=== PATIENT | male | born 1950 | race Caucasian/White ===

== ENCOUNTER 2023-08-31 11:51 | Inpatient (IN) | payer MEDICARE, SELFPAY ==
[2023-08-31] VITALS (31 sets, daily range): BP systolic 104–141; BP diastolic 65–95; PULSE 94; BMI 31.7; BMI 27.9
[2023-08-31 07:54] LABS: % Basophils 0.3 % (0-2); % Eosinophils 0.4 % (0-6); % Immature Granulocytes 0.2 % (0-0.5); % Lymphocytes 11.1 % (20.5-51.1); % Monocytes 9.6 % (1.7-9.3); % Neutrophils 78.4 % (42.2-75.2); Absolute Lymphocytes 1.1 10^3/uL (1.2-3.4); Absolute Monocytes 0.9 10^3/uL (0.1-0.6); Absolute Neutrophils 7.4 10^3/uL (1.4-6.5); Hemoglobin 15.3 g/dL (13.0-18.0); Mean Corp Hgb Conc. 34.8 g/dL (33.0-37.0); Mean Corpuscular Hgb 31.4 pg (27.0-31.0); Mean Corpuscular Volume 90.2 fL (80.0-94.0); Mean Platelet Volume 10.4 fL (7.4-10.4); Nucleated Red Blood Cells % 0 % (-); Platelet Count 167 10^3/uL (130-400); Red Blood Cell Count 4.88 10^6/uL (4.70-6.10); Red Cell Dist. Width 12.6 % (11.5-14.5); White Blood Cell Count 9.5 10^3/uL (4.8-10.8)
[2023-08-31 08:13] LABS: ALT (SGPT) 32 U/L (0-50); AST (SGOT) 69 U/L (17-59); Albumin 4.4 g/dl (3.5-5.0); Alkaline Phosphatase 70 U/L (38-126); Blood Urea Nitrogen 23 mg/dl (9-20); Calcium 9.4 mg/dl (8.4-10.2); Carbon Dioxide 23 mmol/L (22-30); Chloride 107 mmol/L (98-107); Estimated Creatinine Clearance 81 ml/min; Glucose 111 mg/dl (70-99); Lipase 48 U/L (23-300); Magnesium 1.9 mg/dl (1.6-2.3); Potassium 3.9 mmol/L (3.5-5.1); Sodium 135 mmol/L (135-145); Total Bilirubin 1.4 mg/dl (0.2-1.3); eGFR > 60.00
[2023-08-31 08:14] LABS: COVID-19 Antigen Negative (Negative)
--- NOTE | 2023-08-31 08:30 | EDRN ---
troponin came back elevated, provider notified
--- NOTE | 2023-08-31 08:32 | EDRN ---
Dr. Steward currently at the pts bedside, second EKG being performed
[2023-08-31] MEDS: NITROSTAT (SUBLINGUAL) 0.400000000000000022 MG SL ×2 (08:44→09:02)
[2023-08-31] MEDS: NSS 1000 IV (08:44)
--- NOTE | 2023-08-31 08:45 | EDRN ---
Nitro SL administered for central chest pain 10/08 per provider along with 1,000cc IVF Bolus
--- NOTE | 2023-08-31 08:46 | ED.GENMED ---
History of Present Illness
<Farhana Hobson PA-C - Last Filed: 08/31/23 14:21>
General
Chief Complaint: Chest Problem
Source: patient
Exam Limitations: none
Time Seen by Provider: 08/31/23 07:18
Nursing documentation reviewed up to this point in time: agreed with
Travel History
Have you had any contact with someone who has COVID-19?: No
Do you have any symptoms of coronavirus? Fever > 100 degrees, chills, cough, shortness of breath, sore throat, loss of taste or smell, muscle aches, or headache?: No
History of Present Illness
History of Present Illness:
pt is a 72 y/o m with h/o htn, hld
here with chest pain that woke him from sleep at 2 am
says it started in L ear, jaw adn then chest suddenly, 02/07
he was able to get up and take 2 full doses of aspirin
then walked around a little
the ear and jaw are much better but still has pain i nthe chest with breathing 10/08
he has not had any nauesa, vomiting, diaphoresis, syncope, lightheadedness
no recent long travel
no h/o dvt/pe
no h/o cad
Past History
<Farhana Hobson PA-C - Last Filed: 08/31/23 14:21>
Past History
ED Past Medical History: HTN and Hypercholesterolemia
Social History
Tobacco: Non-smoker
Alcohol: None
Drug: None
Personal: Single
Review of Systems
<ABRAHAM Mix Last Filed: 08/31/23 14:21>
Review of Systems
Allergies reviewed?: Yes
All Other Systems: Not applicable
Phy Exam
<Farhana Hobson PA-C - Last Filed: 08/31/23 14:21>
Physical Exam
Physical Exam:
GENERAL: Alert , in no apparent distress, pt appears very comfortabe
EYE: pupils equal and reactive
NECK: Supple
ENT: o/p clr, mmm., eas normal b/l
CARDIAC: Regular rate and rhythm .no edema
LUNGS: Clear breath sounds bilaterally, no acute respiratory distress, no wheezes/rales/rhonchi
ABDOMEN: Soft, without focal tenderness, no r/g, no cvat, normal bowel sounds
NEUROLOGICAL: Alert and oriented, no focal neuro deficits
SKIN: Warm and dry, skin intact.
MUSCULOSKELETAL: No edema, well perfused. neg marci's sign
PSYCH: Normal and appropriate interaction.
Scores
<Farhana Hobson PA-C - Last Filed: 08/31/23 14:21>
Heart Score for Chest Pain Patients
Heart Score for Chest Pain Patients: 4
Heart Score Risk: 20.3% MACE over next 6 weeks
<Chapin Steward MD - Last Filed: 08/31/23 11:52>
Heart Score for Chest Pain Patients
STEMI patient?: No
History: Slightly or Non-Suspicious
ECG: Normal
Age: >/= 65 years
Risk Factors: 1 or 2 Risk Factors
Troponin: >1 - <3 x Normal Limit
Heart Score for Chest Pain Patients: 4
Heart Score Risk: 20.3% MACE over next 6 weeks
Course
<Farhana Hobson PA-C - Last Filed: 08/31/23 14:21>
Orders/Labs/Results
Orders:
Orders
08/31/23 06:56
EKG [Electrocardiogram (*1)] Urgent
Reason for Study: Chest Pain
EKG- Treatment ONCE
08/31/23 07:47
COVID-19 Antigen Urgent
Source: Nasal Swab
Complete Blood Count/With Diff Urgent
Comprehensive Metabolic Panel Urgent
Lipase Urgent
Magnesium Urgent
Troponin I Urgent
Influenza A+B Rapid Molecular Urgent
QIAN Source: Nasal Swab
Specimen Description:
08/31/23 08:32
EKG [Electrocardiogram (*1)] Urgent
Reason for Study: Chest Pain
EKG- Treatment ONCE
08/31/23 08:43
0.9% Sodium Chloride 1000 ml [Nss] 1,000 ml IV BOLUS
Nitroglycerin Sublingual [Nitrostat (Sublingual)] 0.4 mg SL NOW STA
08/31/23 08:44
Heparin 4,000 units IV NOW STA
Nursing to Place Non Medication Order As Directed
Physician Order: PTT 6 hours after initial start of Heparin infusion
Above order entered?: Yes
08/31/23 08:45
Heparin 04889 Units/250 ml 25,000 units in 250 ml IV PER PROTOCOL
Weight to be used for heparin protocol in kilograms (kg):: 112
Protocol:: Cardiac Tx/Acute Coronary
PTT Goal Range to be used:: PTT 73 to 111 seconds
Order type:: Initial
INITIAL Infusion Dose (UNITS/KG/hr) & then follow protocol:: 12 units/kg/hr
Infusion Dose in UNITS/hr & then follow protocol (UNITS/hr):: 1,000
INFUSION RATE in mL/hr & then follow protocol (mL/hr):: 10
PTT less than or equal to 64 seconds:: Increase rate by 200 units/hr (+ 2 mL/hr)
PTT 64.1 to 72.9 seconds:: Increase rate by 100 units/hr (+ 1 mL/hr)
PTT 73 to 111 seconds:: Target Range. No change in rate.
PTT 111.1 to 130.9 seconds:: Decrease rate by 100 units/hr (- 1 mL/hr)
PTT 131 to 199.9 seconds:: HOLD for 1 hr. Then decrease rate by 200 units/hr (- 2 mL/hr)
PTT greater than or equal to 200 seconds:: HOLD for 2 hrs & Notify Provider. Then decrease by 200 units/hr (-
2 mL/hr)
Lab follow-up:: Each change, PTT q6h until 2 consecutive are therapeutic. Then PTT
daily.
08/31/23 08:50
PTT Urgent
Comment: Obtain baseline before beginning heparin infusion if not already collected
08/31/23 09:00
Nitroglycerin Sublingual [Nitrostat (Sublingual)] 0.4 mg SL NOW STA
08/31/23 09:01
Nitroglycerin 100 mg/250 ml [Nitroglycerin Premix] 100 mg in 250 ml IV NOW
Initial dose in mcg/min, then titrate:: 5
Titrate to keep:: SBP < 160 mmHg
Titrate by mcg/min:: 5 mcg/min, may increase by 10 mcg/min if dose > 20 mcg/min
Frequency of titrations (minutes):: every 3-5 minutes
Maximum dose in mcg/min:: 200
Begin to taper infusion when:: Remained at goal for 2hrs
Taper by mcg/min:: 5 mcg/min
Frequency of taper (minutes) if patient maintains goal:: 30
Taper to off?: Yes
If infusion off & no longer maintaining goal:: Contact Provider
08/31/23 09:08
Aspirin Chewable [Low Strength Aspirin] 324 mg PO NOW STA
08/31/23 09:33
Metoprolol [Lopressor] 2.5 mg IV NOW STA
08/31/23 09:56
Acetaminophen [Tylenol] 650 mg PO Q4HPRN PRN
08/31/23 10:09
Troponin I Routine
08/31/23 11:00
Flush (0.9% Sodium Chloride) [Flush (Nss)] See Dose Instructions IV PER PROTOCOL
08/31/23 11:39
Admit/Transfer Patient As Directed
Co-Sign Provider:
Level of Care: Inpatient admission
Assign to:: Telemetry
Physician / Group: carlin/medicine
Transfer to: Telemetry
Diagnosis: chest pain
Reason for Telemetry: Arrhythmia
Date to Stop Telemetry: 09/03/23
Time to Stop Telemetry: 11:00
Reason for Hospitalization: chest pain
Expected length of stay greater than two midnights?: Yes
ELOS- Estimated Length of Stay in days: 3
I certify the patient meets the requirements for IP care: Yes
08/31/23 11:40
Code Status As Directed
Resuscitation Status: Full Code
08/31/23 15:20
PTT Urgent
08/31/23 18:00
Atorvastatin [Lipitor] 40 mg PO QPM
08/31/23 20:00
Metoprolol [Lopressor] 12.5 mg PO BID
09/03/23 11:00
DC Protocol for Telemetry ONCE
Abnormal Lab Results
08/31/23 08/31/23
07:47 10:09
MCH 31.4 H pg
(27.0-31.0)
Absolute Neuts (auto) 7.4 H 10^3/uL
(1.4-6.5)
Absolute Lymphs (auto) 1.1 L 10^3/uL
(1.2-3.4)
Absolute Monos (auto) 0.9 H 10^3/uL
(0.1-0.6)
Neutrophils % 78.4 H %
(42.2-75.2)
Lymphocytes % 11.1 L %
(20.5-51.1)
Monocytes % 9.6 H %
(1.7-9.3)
BUN 23 H mg/dl
(9-20)
Glucose 111 H mg/dl
(70-99)
Total Bilirubin 1.4 H mg/dl
(0.2-1.3)
AST 69 H U/L
(17-59)
Troponin I 5.130 H* ng/ml 4.840 H* ng/ml
08/31/23 07:47
08/31/23 07:47
Vital Signs
Initial and Last Documented VS:
Initial Vital Signs
Temp Pulse Resp BP Pulse Ox
97.9 F 105 16 124/90 96
08/31/23 06:53 08/31/23 06:53 08/31/23 06:53 08/31/23 06:53 08/31/23 06:53
Last Documented Vital Signs
Temp Pulse Resp BP Pulse Ox
97.9 F 74 24 108/80 93
08/31/23 06:53 08/31/23 14:00 08/31/23 14:00 08/31/23 12:45 08/31/23 14:00
<Chapin Steward MD - Last Filed: 08/31/23 11:52>
Orders/Labs/Results
Orders:
Orders
08/31/23 06:56
EKG [Electrocardiogram (*1)] Urgent
Reason for Study: Chest Pain
EKG- Treatment ONCE
08/31/23 07:47
COVID-19 Antigen Urgent
Source: Nasal Swab
Complete Blood Count/With Diff Urgent
Comprehensive Metabolic Panel Urgent
Lipase Urgent
Magnesium Urgent
Troponin I Urgent
Influenza A+B Rapid Molecular Urgent
QIAN Source: Nasal Swab
Specimen Description:
08/31/23 08:32
EKG [Electrocardiogram (*1)] Urgent
Reason for Study: Chest Pain
EKG- Treatment ONCE
08/31/23 08:43
0.9% Sodium Chloride 1000 ml [Nss] 1,000 ml IV BOLUS
Nitroglycerin Sublingual [Nitrostat (Sublingual)] 0.4 mg SL NOW STA
08/31/23 08:44
Heparin 4,000 units IV NOW STA
Nursing to Place Non Medication Order As Directed
Physician Order: PTT 6 hours after initial start of Heparin infusion
Above order entered?: Yes
08/31/23 08:45
Heparin [id number] Units/250 ml 25,000 units in 250 ml IV PER PROTOCOL
Weight to be used for heparin protocol in kilograms (kg):: 112
Protocol:: Cardiac Tx/Acute Coronary
PTT Goal Range to be used:: PTT 73 to 111 seconds
Order type:: Initial
INITIAL Infusion Dose (UNITS/KG/hr) & then follow protocol:: 12 units/kg/hr
Infusion Dose in UNITS/hr & then follow protocol (UNITS/hr):: 1,000
INFUSION RATE in mL/hr & then follow protocol (mL/hr):: 10
PTT less than or equal to 64 seconds:: Increase rate by 200 units/hr (+ 2 mL/hr)
PTT 64.1 to 72.9 seconds:: Increase rate by 100 units/hr (+ 1 mL/hr)
PTT 73 to 111 seconds:: Target Range. No change in rate.
PTT 111.1 to 130.9 seconds:: Decrease rate by 100 units/hr (- 1 mL/hr)
PTT 131 to 199.9 seconds:: HOLD for 1 hr. Then decrease rate by 200 units/hr (- 2 mL/hr)
PTT greater than or equal to 200 seconds:: HOLD for 2 hrs & Notify Provider. Then decrease by 200 units/hr (-
2 mL/hr)
Lab follow-up:: Each change, PTT q6h until 2 consecutive are therapeutic. Then PTT
daily.
08/31/23 08:50
PTT Urgent
Comment: Obtain baseline before beginning heparin infusion if not already collected
08/31/23 09:00
Nitroglycerin Sublingual [Nitrostat (Sublingual)] 0.4 mg SL NOW STA
08/31/23 09:01
Nitroglycerin 100 mg/250 ml [Nitroglycerin Premix] 100 mg in 250 ml IV NOW
Initial dose in mcg/min, then titrate:: 5
Titrate to keep:: SBP < 160 mmHg
Titrate by mcg/min:: 5 mcg/min, may increase by 10 mcg/min if dose > 20 mcg/min
Frequency of titrations (minutes):: every 3-5 minutes
Maximum dose in mcg/min:: 200
Begin to taper infusion when:: Remained at goal for 2hrs
Taper by mcg/min:: 5 mcg/min
Frequency of taper (minutes) if patient maintains goal:: 30
Taper to off?: Yes
If infusion off & no longer maintaining goal:: Contact Provider
08/31/23 09:08
Aspirin Chewable [Low Strength Aspirin] 324 mg PO NOW STA
08/31/23 09:33
Metoprolol [Lopressor] 2.5 mg IV NOW STA
08/31/23 09:56
Acetaminophen [Tylenol] 650 mg PO Q4HPRN PRN
08/31/23 10:09
Troponin I Routine
08/31/23 11:00
Flush (0.9% Sodium Chloride) [Flush (Nss)] See Dose Instructions IV PER PROTOCOL
08/31/23 11:39
Admit/Transfer Patient As Directed
Co-Sign Provider:
Level of Care: Inpatient admission
Assign to:: Telemetry
Physician / Group: shirinricha/medicine
Transfer to: Telemetry
Diagnosis: chest pain
Reason for Telemetry: Arrhythmia
Date to Stop Telemetry: 09/03/23
Time to Stop Telemetry: 11:00
Reason for Hospitalization: chest pain
Expected length of stay greater than two midnights?: Yes
ELOS- Estimated Length of Stay in days: 3
I certify the patient meets the requirements for IP care: Yes
08/31/23 11:40
Code Status As Directed
Resuscitation Status: Full Code
08/31/23 15:20
PTT Urgent
08/31/23 18:00
Atorvastatin [Lipitor] 40 mg PO QPM
08/31/23 20:00
Metoprolol [Lopressor] 12.5 mg PO BID
09/03/23 11:00
DC Protocol for Telemetry ONCE
Abnormal Lab Results
08/31/23 08/31/23
07:47 10:09
MCH 31.4 H pg
(27.0-31.0)
Absolute Neuts (auto) 7.4 H 10^3/uL
(1.4-6.5)
Absolute Lymphs (auto) 1.1 L 10^3/uL
(1.2-3.4)
Absolute Monos (auto) 0.9 H 10^3/uL
(0.1-0.6)
Neutrophils % 78.4 H %
(42.2-75.2)
Lymphocytes % 11.1 L %
(20.5-51.1)
Monocytes % 9.6 H %
(1.7-9.3)
BUN 23 H mg/dl
(9-20)
Glucose 111 H mg/dl
(70-99)
Total Bilirubin 1.4 H mg/dl
(0.2-1.3)
AST 69 H U/L
(17-59)
Troponin I 5.130 H* ng/ml 4.840 H* ng/ml
08/31/23 07:47
08/31/23 07:47
Vital Signs
Initial and Last Documented VS:
Initial Vital Signs
Temp Pulse Resp BP Pulse Ox
97.9 F 105 16 124/90 96
08/31/23 06:53 08/31/23 06:53 08/31/23 06:53 08/31/23 06:53 08/31/23 06:53
Last Documented Vital Signs
Temp Pulse Resp BP Pulse Ox
97.9 F 74 24 108/80 93
08/31/23 06:53 08/31/23 14:00 08/31/23 14:00 08/31/23 12:45 08/31/23 14:00
<Farhana Hobson PA-C - Last Filed: 08/31/23 14:21>
MDM/Problems Addressed
Differential Diagnosis Includes:
ACS, pe, disscection
MDM/Problems Addressed:
72 y/o M with h/o HTN, hld; at 2 am was woken by intense pain in his left ear/jaw and then his chest. it was 8/10 and the ear/jaw got better, but chest lingered; now he has pain mostly just with deep breathing; never ripping through to back. no
nausea/vomiting. took 2 full doses of aspirin ta home before coming in. bps 130/90, slightly tachy 100s, pulse ox 93%; looks very comfortable. ekg initally was slight st seg morphology looked a little concave but not elevated, we got a second one
which really isn't changed. trop came back at 5.
my attending saw him, he thinks it is more likely that pt has ACS than PE, though i had ordered a PE study; would prefer to defer to cardology to image with contrast or instead get echo and start heparin, incase pt is taken fo rca.
d/w dr. good from cards who agreed wt plan and will consult
recommedned heparin, nitro, asa (pt already had) and admit to medicine;
<Farhana Hobson PA-C - Last Filed: 08/31/23 14:21>
*Critical Care Note
Total Time (30-74mins, 75-104mins- exclusive of procedures): Not Applicable
ED Attending Note
<Farhana Hobson PA-C - Last Filed: 08/31/23 14:21>
-
Portions of this chart may have been created with voice recognition software.� Occasional wrong word or��sound alike� substitutions may have occurred due to the inherent limitations of voice recognition software.
<Chapin Steward MD - Last Filed: 08/31/23 11:52>
ED Attending Note
Patient seen and examined by attending physician: Yes
ED Attending Note:
Patient with history of hypertension and hyper cholesterolemia, presents to ED secondary to sudden onset of left ear and throat pain, which woke the patient up from sleep this morning around 2 AM. Since then, patient also has experienced left-sided
chest pain, but only with deep inspiration. Denies previous history of similar symptoms. Denies associated shortness of breath, nausea, vomiting, or dizziness. Denies diaphoresis. Denies recent illness. Denies back pain. Denies leg pain or
swelling. Denies smoking or drinking alcohol.
Physical Exam
General: no apparent distress, not acutely ill. afebrile
Head: nc/at. eomi
Neck: supple. no meningeal signs.
Heart: s1/s2 regular rate and rhythm, no murmur. equal radial pulses.
Lungs: no acute respiratory distress. clear bilaterally
Abdomen: normal bowel sounds. not tender.
Neuro: alert and oriented. no focal neurological deficits
Skin: no rash
Psychiatric: well kept. interactive and cooperative
Extremities: no edema. no calf tenderness.
History, exam, and blood work consistent with likely acute coronary syndrome. Patient's symptoms improved with sublingual nitroglycerin tablet. As such, patient will be started on nitroglycerin infusion.
Discussed with cardiology, , who recommends starting patient on heparin protocol. 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
Critical care statement: A total of 40 minutes of critical care time was provided for this patient. This includes management of unstable vital signs, evaluation of the patient at bedside, reviewing the patient's pertinent medical records, discussion
with consultants, review of old EKGs and review of pertinent medical records. This time with separate from time utilized to perform the aforementioned documented procedures
Discharge Plan
Departure
Patient Disposition: Admit
Date of Disposition: 08/31/23
Time of Disposition: 08:46
Admit to: Telemetry
Presentation/result/management discussed w/ accepting MD/DO: Hospitalist
Condition: Fair
Covid-19: Not Applicable
Discharge Problem:
Non-ST elevation UT (NSTEMI)
Interventions
Interventions:
*Risk Screen - Suicide Last Done: 08/31/23 06:53
*General Assessment Last Done: 08/31/23 06:53
*Neglect/Abuse Screening Last Done: 08/31/23 06:53
ED- Fall Risk Assessment Last Done: 08/31/23 07:52
*ED COVID-19 Vaccine History Last Done: 08/31/23 07:52
ED- Cardiac Assessment Last Done: 08/31/23 07:52
ED- Pulmonary Assessment Last Done: 08/31/23 07:52
--- NOTE | 2023-08-31 08:51 | EDRN ---
the pt states that chest pain is currently a 2/10 after Nitro SL administration
[2023-08-31] MEDS: NITROGLYCERIN PREMIX 250 IV (09:07)
[2023-08-31 09:13] LABS: APTT 26.6 Sec (23.4-35.0)
[2023-08-31] MEDS: LOW STRENGTH ASPIRIN 324 MG PO (09:15)
[2023-08-31] MEDS: HEPARIN 4000 UNITS IV (09:16)
[2023-08-31] MEDS: HEPARIN 25000 UNITS/250 ML IV (09:18)
--- NOTE | 2023-08-31 09:20 | EDRN ---
cardiology currently at the pts bedside speaking to the pt
--- NOTE | 2023-08-31 09:24 | EDRN ---
the pt is resting in stretcher in the lowest position, side rails up x2, call lloyd within reach, HOB elevated, the pt has central chest pain currently 3/10, NST in the 90's, last BP 126/76, Nitro gtt at 5, Heparin gtt at 1000units/hour, RA Sp02 96%,
will continue to monitor the pt closely
[2023-08-31] MEDS: LOPRESSOR 2.5 MG IV (09:40)
--- NOTE | 2023-08-31 09:51 | CON.CAR ---
Addendum entered and electronically signed by Slade Zuñiga MD 08/31/23 10:23:
I saw and examined the patient.
The HOUSEKEEPER AND LAUNDRY ASSISTANT's note was reviewed and I agree with the note.
Comment: 72-year-old male with hypertension, dyslipidemia, and microscopic hematuria who presented to the emergency department with ear and chest pain. He has an elevated troponin and symptoms have now been relieved with IV metoprolol and nitro gtt,
consistent with an NSTEMI.
NSTEMI
- aspirin, statin, nitro gtt, heparin gtt, he is currently CP free if he has ongoing CP despite nitro or HD instability would need emergent cath
Original Note:
Consultation
Consultation Request
Date/Time Consultation Requested: 08/31/23 09:00
Date/Time Consultation Performed: 08/31/23
Medical History
-
Chief Complaint: Chest pain
History of Present Illness:
Michael Johnson is a 72-year-old male with hypertension, dyslipidemia, and microscopic hematuria who presented to the emergency department with ear and chest pain. He reports he was woken up from a sleep at approximately 2 AM with left-sided ear
pain. It radiated down into the left side of his neck. He took 1 dose of aspirin and reported the ear pain resolved. He took an additional dose of aspirin but did not improve his throat pain. He then developed midsternal anterior chest pain. He
denies associated symptoms of diaphoresis, dizziness, and shortness of breath. He reports taking a deep breath made the pain worse. Rest kept the pain is stable. At its worst it was 8/10 in severity. The pain lasted for approximately 1 hour. He
is currently on nitroglycerin at 5 mcg/hour and is chest pain-free.
Past Medical History
Past Medical History: HTN, Hypercholesterolemia and Other (microscopic hematuria)
Past Surgical History: Urological
Social History
Tobacco: Non-Smoker
Alcohol: None
Drug: None
Personal:
Living: With Family
Employment: Retired
Family History
Family History: CAD (CAD in father. due to colon cancer.)
Allergies / Home Medications
Allergy/AdvReac Type Severity Reaction Status Date / Time
clindamycin Allergy Unknown Verified 08/31/23 06:52
Medication Instructions Recorded Confirmed Type
ramipril 2.5 mg capsule 2.5 mg PO DAILY 08/31/23 08/31/23 History
simvastatin 10 mg tablet 10 mg PO DAILY 08/31/23 08/31/23 History
Review of Systems
-
History Source: Patient
All other systems: Negative unless noted
EENT: Other (Ear & throat pain)
Cardiac: Other (See HPI)
Physical Exam
Vital Signs
Temp Pulse Resp BP Pulse Ox
97.9 F 92 26 134/95 94
08/31/23 06:53 08/31/23 09:40 08/31/23 09:00 08/31/23 09:40 08/31/23 09:00
Lab Results
08/31/23 07:47
08/31/23 07:47
Troponin I 5.130 ng/ml H* 08/31/23 07:47
Physical Exam
General: Well Developed, Well Nourished, No Apparent Distress and Comfortable
HEENT: Normocephalic, Anicteric and Moist Mucous Membranes
Respiratory: Clear and Non Labored Respirations
Cardiac: S1/S2 and Regular Rhythm; Negative Peripheral Edema
Breast: Deferred by me
GI: Soft, Non Tender, Non Distended and Normal Bowel Sounds
Rectal: Deferred by Provider
Genito-urinary: No Costovertebral Tender
Musculoskeletal: No Clubbing, No Cyanosis and No Edema
Skin: Warm and Dry
Neuro: AO x 3
Hematologic/Lymphatic: No Lymphadenopathy
Psych: Calm
Impression / Plan
-
NSTEMI
-Chest pain free on nitro gtt, continue
-Given ASA 324mg, continue 81mg daily
-Elevated HR, Lopressor 2.5mg IV x 1 now
-Echocardiogram
-Ischemic evaluation this hospitalization
-Fasting lipid panel in am
-Hgba1c in am
HTN, stable
-On nitroglycerin gtt
-Ramipril 2.5mg as an outpatient, on hold
HLD, on simvastatin 10mg, transition to atorvastatin 40mg daily
Microscopic hematuria, follows with Dr. Simms, now on heparin/ASA
Data Reviewed
-
EKG: Report Reviewed by me (Sinus tachycardia, non specific ST abnormality, rate 100; Sinus rhythm, rate 90)
Labs: Labs Reviewed by me
Old Records: Reviewed
--- NOTE | 2023-08-31 09:56 | EDRN ---
the pt is resting in stretcher in the lowest position, side rails up x2, call lloyd within reach, HOB elevated, NSR in the 70's, last BP 107/71, RA Sp02 98%, no c/o SOB, pt states that center chest pain is 3/10, Nitro gtt currently still at 5,
Heparin currently still at 1000units/hour, will continue to monitor the pt closely
--- NOTE | 2023-08-31 10:58 | EDRN ---
second trop came back and provider notified
--- NOTE | 2023-08-31 14:46 | CM ---
MEt patient and in ED room. Patient admitted from home with chest pain. Patient and live in 2 level home with 2 steps in. THere is half bath on entry engineer. Second floor full bathroom and bedroom. Stairs are 7 landing 6 more with
bilateral rails.
Patient is very independent. He has no history of VNA or SNF.
PCP Dr. Rodriguez
Pharmacy: [facility]
CM to follow for discharge needs but none anticipated.
--- NOTE | 2023-08-31 15:46 | HPS.HSE ---
Family Physician
-
Family Physician: Jose A Rodriguez
Chief Complaint
-
Chest pain
History of Present Illness
72-year-old male with past medical history of hypertension, hyperlipidemia, microscopic hematuria now presents after waking up at 2 AM with left-sided ear pain as well as chest pain. He had pain that radiated from the left side of his neck. At
that time took 1 dose of aspirin with ear pain resolving although subsequently developed midsternal anterior chest pain. Otherwise denies diaphoresis, dizziness, shortness of breath, loss of consciousness. Pain lasted approximate 1 hour. Blood
pressure 108/73, pulse 76, respiratory rate 17, afebrile, 95% on room air. Labs remarkable for total bilirubin 1.4, AST 69, troponin 5.13.
Medical History
Past Medical History
Past Medical History: Reports HTN, Hypercholesterolemia and Other (Microscopic hematuria)
Past Surgical History: Reports None
Social History
Tobacco: Non-smoker
Alcohol: None
Drug: None
Personal:
Living: With Family
Family History
Family History: Not pertinent
Allergies / Home Medications
Allergies reflects when Allergies were last updated in [facility].
Home Medications with original date entered in [facility]
Allergy/Medication List:
Allergies
Allergy/AdvReac Type Severity Reaction Status Date / Time
clindamycin Allergy Unknown Verified 08/31/23 06:52
Home Medications
aspirin 81 mg tablet,delayed release 162 mg PO BIDPRN PRN chest pains 08/31/23
omega [id number] oil 1,000 mg (120 mg-180 mg) capsule (Fish Oil) 1 cap PO QPM 08/31/23
psyllium 1 packet PO DAILYPRN PRN constipation 08/31/23
ramipril 2.5 mg capsule 2.5 mg PO HS 08/31/23
simvastatin 10 mg tablet 10 mg PO HS 08/31/23
Review of Systems
-
History Source: Patient
A 12 point ROS was completed and negative except as noted: Yes
Physical Exam
Vital Signs
Vital Signs
Temp Pulse Resp BP Pulse Ox
97.9 F 76 17 108/73 95
08/31/23 06:53 08/31/23 14:47 08/31/23 14:47 08/31/23 14:47 08/31/23 14:47
Physical Exam
General: Well Developed, Well Nourished and No Apparent Distress
HEENT: NormoCephalic
Respiratory: Clear
Cardiac: S1/S2 and Regular Rhythm
GI: Soft and Non Tender
Musculoskeletal: No Clubbing
Skin: Warm and Dry
Neuro: Awake, Alert, Oriented and AO x 3
Hematologic/Lymphatic: No Lymphadenopathy
Laboratory Results
-
08/31/23 07:47
08/31/23 07:47
Laboratory Results
APTT 48.0 Sec (23.4-35.0) H 08/31/23 14:56
Total Bilirubin 1.4 mg/dl (0.2-1.3) H 08/31/23 07:47
AST 69 U/L (17-59) H 08/31/23 07:47
ALT 32 U/L (0-50) 08/31/23 07:47
Alkaline Phosphatase 70 U/L (38-126) 08/31/23 07:47
Troponin I 4.500 ng/ml H* 08/31/23 14:59
Lipase 48 U/L (23-300) 08/31/23 07:47
Data Reviewed
-
Lab Data: Labs Reviewed by me
Impression/Plan
-
IMPRESSION:
72-year-old male with past medical history of hypertension, hyperlipidemia, microscopic hematuria now presents for left ear pain radiating down and eventual chest pain. Admitted for NSTEMI.
PLAN:
#NSTEMI
� Aspirin, statin
� Start heparin drip
� Nitro drip, wean as tolerated
� Cardiology consulted, cath as per their service chest pain-free
#Hypertension
� On nitroglycerin drip
� Hold ramipril 2.5 mg outpatient
#Hyperlipidemia
� Transition simvastatin to atorvastatin 40 mg daily upon discharge
#Microscopic hematuria
� Follow Dr. Palomo outpatient
#DVT prophylaxis
� Heparin drip
--- NOTE | 2023-08-31 16:46 | PTCARENOTE ---
patient arrived from ER with IV nitroglycerin drip and IV heparin drip infusing without difficulties. when checking orders if patient is chest pain free then IV nitroglycerin drip can be weaned off. IV nitroglycerin drip is presently off. patient
is pain free. TT Dr. Zuñiga aware that patient is pain free and IV nitro gtt. off. monitor on, NSR, VSS. oriented to room and surroundings.
[2023-08-31] MEDS: LIPITOR 40 MG PO (17:46)
[2023-08-31] MEDS: LOPRESSOR 12.5 MG PO (20:19)
--- NOTE | 2023-08-31 21:21 | PTCARENOTE ---
Pt educated on POC- verbalized understanding. ambulating in the room as self. Heparin gtt running as documented. 0/10 CP at this time. SR on the monitor. VSS
[2023-08-31 22:10] LABS: APTT 65.2 Sec (23.4-35.0)
[2023-08-31] MEDS: LOPRESSOR 25 MG PO (22:37)
--- NOTE | 2023-08-31 22:54 | PTCARENOTE ---
~ 2230 pt flipped into afib Hr 90s- 120s while in bed. BP 123/85. confirmed with EKG- No known hx of afib. Pt completely asymptomatic. denies SOB, palpations, and lightheadedness. - Dr. Zuñiga made aware- orders obtained for an extra 25mg
metoprolol PO x1 given and recheck Troponin level. heparin gtt remains running as documented. 2L NC applied just for comfort. Call lloyd within reach.
--- NOTE | 2023-08-31 23:01 | PTCARENOTE ---
Trop came back 5.040- cp still 0. Dr. Zuñiga made aware. HR low 100s- 110s.
[2023-09-01] MEDS: HEPARIN 25000 UNITS/250 ML IV ×2 (04:57→22:17)
[2023-09-01 05:09] VITALS: BP 106/78
[2023-09-01 05:30] LABS: Hematocrit 44.2 % (39.0-52.0); Hemoglobin 15.1 g/dL (13.0-18.0); Mean Corp Hgb Conc. 34.2 g/dL (33.0-37.0); Mean Corpuscular Hgb 31.6 pg (27.0-31.0); Mean Corpuscular Volume 92.5 fL (80.0-94.0); Mean Platelet Volume 10.8 fL (7.4-10.4); Platelet Count 167 10^3/uL (130-400); Red Blood Cell Count 4.78 10^6/uL (4.70-6.10); Red Cell Dist. Width 12.8 % (11.5-14.5); White Blood Cell Count 9.1 10^3/uL (4.8-10.8)
[2023-09-01 05:36] LABS: APTT 75.5 Sec (23.4-35.0)
[2023-09-01 05:49] LABS: ALT (SGPT) 25 U/L (0-50); AST (SGOT) 49 U/L (17-59); Alkaline Phosphatase 57 U/L (38-126); Blood Urea Nitrogen 20 mg/dl (9-20); Calcium 9.6 mg/dl (8.4-10.2); Carbon Dioxide 24 mmol/L (22-30); Chloride 105 mmol/L (98-107); Estimated Creatinine Clearance 86 ml/min; Glucose 104 mg/dl (70-99); Sodium 138 mmol/L (135-145); Total Bilirubin 1.6 mg/dl (0.2-1.3); Total Protein 6.6 g/dl (6.3-8.2); eGFR > 60.00
--- NOTE | 2023-09-01 06:03 | PTCARENOTE ---
CP remains 0/10 this shift. Still afib- HR 90s- 110s. on average.
[2023-09-01 07:08] VITALS: BP 111/65
[2023-09-01] MEDS: LOPRESSOR 25 MG PO (08:35)
--- NOTE | 2023-09-01 09:24 | PTOTSP ---
Received order for PT and reviewed chart. S/w RN who reports pt is independent in his room and does not need PT. Agreed to sign off.
--- NOTE | 2023-09-01 10:02 | W.PN.CD ---
Today's Communication / Plan
-
- cont heparin, increase metop, cont aspirin and statin
Impression / Plan
-
72-year-old male with hypertension, dyslipidemia, and microscopic hematuria who presented to the emergency department with ear and chest pain. He has an elevated troponin and symptoms have now been relieved with IV metoprolol and nitro gtt,
consistent with an NSTEMI. He is chest pain free, however, went into AF overnight.
NSTEMI
-Chest pain free nitro gtt off
-Given ASA 324mg, continue 81mg daily
- new af metop 50 bid
-Echocardiogram
-NPO after midnight cath tomorrow
-Fasting lipid panel in am
-Hgba1c in am
AF New paroxysmal
- Increase metop 50mg bid
HTN, stable
HLD, on simvastatin 10mg, transition to atorvastatin 40mg daily
Microscopic hematuria, follows with Dr. Simms, now on heparin/ASA
Physical Exam
Vital Signs/Labs
Vital Signs
Temp Pulse Resp BP Pulse Ox
98 F 105 20 111/65 94
09/01/23 07:05 09/01/23 08:35 09/01/23 07:05 09/01/23 08:35 09/01/23 07:05
08/31/23 09/01/23 09/02/23
06:59 06:59 06:59
Actual Weight 241 lb 2.971 oz
09/01/23 05:06
09/01/23 05:06
APTT 75.5 Sec (23.4-35.0) H 09/01/23 05:06
Magnesium 1.9 mg/dl (1.6-2.3) 08/31/23 07:47
LAB Results
08/31/23 08/31/23 08/31/23
07:47 10:09 14:58
Troponin I 5.130 H* 4.840 H* Cancelled
08/31/23 08/31/23 08/31/23
14:59 17:57 20:57
Troponin I 4.500 H* Cancelled Cancelled
08/31/23 09/01/23
22:26 05:06
Troponin I 5.040 H* 4.240 H*
Physical Exam
Constitutional: No acute distress
EENT: Anicteric
Cardiovascular: Pedal edema is absent and Rhythm/rate is irregular
Respiratory: Respiratory effort normal and Lungs clear to auscul.
GI: Soft
Neuro/Psych: AO x 3
Data Reviewed
-
Date of Service: September 01, 2023
EKG: Tracing Personally Visualized and interpreted
Labs: Labs Reviewed by me
[2023-09-01 10:03] VITALS: BMI 27.8
[2023-09-01] MEDS: LOW STRENGTH ASPIRIN 81 MG PO (10:46)
--- NOTE | 2023-09-01 10:55 | PTCARENOTE ---
received patient from night RN, IV heparin @ 1300units/hr without difficulties. monitor shows Afib, new to patient, booklet given and teaching, verbalized understanding. several family members have had afib. patient voices no chest pain. patient
will be NPO for heart cath in am. all questions answered.
[2023-09-01 11:39] VITALS: BP 92/73
--- NOTE | 2023-09-01 14:38 | W.PN.HOSP.TC ---
Today's Communication/Plan
-
Increase metoprolol
Aspirin, statin, heparin drip
Echocardiogram
Hemoglobin A1c, lipid panel
N.p.o. at midnight, cath tomorrow
Assessment / Plan
Assessment / Plan
Physical Exam
General: Well Developed, Well Nourished and No Apparent Distress
HEENT: NormoCephalic
Respiratory: Clear
Cardiac: S1/S2 and Regular Rhythm
GI: Soft and Non Tender
Musculoskeletal: No Clubbing
Skin: Warm and Dry
Neuro: Awake, Alert, Oriented and AO x 3
Hematologic/Lymphatic: No Lymphadenopathy
72-year-old male with past medical history of hypertension, hyperlipidemia, microscopic hematuria now presents for left ear pain radiating down and eventual chest pain.� Admitted for NSTEMI.
PLAN:
#NSTEMI
� Aspirin, statin
� heparin drip
�Echo ordered
� Nitro drip, weaned off
� Cardiology consulted
� N.p.o. after midnight, tentative left heart cath tomorrow
� Follow-up LDL, hemoglobin A1c
#Atrial fibrillation, new and paroxysmal
� Increase metoprolol to 50 mg twice daily
#Hypertension
� Weaned off nitro drip
� Hold ramipril 2.5 mg for now
#Hyperlipidemia
� Transition simvastatin to atorvastatin 40 mg daily upon discharge
#Microscopic hematuria
� Follow Dr. Palomo outpatient
#DVT prophylaxis
� Heparin drip
Anticipated Discharge: 24 - 48 hours
Subjective/Interval History
-
Date of Service: September 01, 2023
No chest pain overnight
Objective Data
-
Labs:
Laboratory Results
09/01/23 09/01/23 09/01/23
05:06 12:16 19:00
WBC 9.1
Hgb 15.1
Hct 44.2
Plt Count 167
APTT 75.5 H 67.0 H Pending
Sodium 138
Potassium 4.0
Chloride 105
Carbon Dioxide 24
BUN 20
Creatinine 1.0
Glucose 104 H
Calcium 9.6
Total Bilirubin 1.6 H
AST 49
ALT 25
Alkaline Phosphatase 57
Vital Signs:
Vital Signs
Temp Pulse Resp BP Pulse Ox
98.9 F 82 20 92/73 91
09/01/23 11:36 09/01/23 12:00 09/01/23 11:36 09/01/23 11:39 09/01/23 11:39
Review of Systems
-
History Source: Patient
All other systems: Not reviewed unless documented
Data Reviewed
-
Labs: Labs Reviewed by me
[2023-09-01 15:46] VITALS: BP 97/69
[2023-09-01] MEDS: LIPITOR 40 MG PO (17:40)
[2023-09-01 19:06] LABS: APTT 69.4 Sec (23.4-35.0)
[2023-09-01 19:48] VITALS: BP 113/73
[2023-09-01] MEDS: LOPRESSOR 50 MG PO (19:54)
[2023-09-01 22:14] VITALS: BP 108/72
--- NOTE | 2023-09-01 23:02 | PTCARENOTE ---
Pt rec'd at beginning of shift with no c/o cp or sob. Pt aware of npo status after mn for cath in am. ACS education book given. Discussed with pt cath, echo and SCARLETT/CV procedures. Iv heparin subtherapeutic. Increased and currently infusing at 1500
units/hr. Afib on telemetry.
[2023-09-02] VITALS (14 sets, daily range): BP systolic 102–121; BP diastolic 57–100; BMI 27.9
--- NOTE | 2023-09-02 02:18 | PTCARENOTE ---
Pt remains cp free at this time. am labs sent
[2023-09-02 02:20] LABS: Hematocrit 40.8 % (39.0-52.0); Hemoglobin 14.6 g/dL (13.0-18.0); Mean Corp Hgb Conc. 35.8 g/dL (33.0-37.0); Mean Corpuscular Hgb 31.9 pg (27.0-31.0); Mean Corpuscular Volume 89.3 fL (80.0-94.0); Mean Platelet Volume 10.4 fL (7.4-10.4); Platelet Count 154 10^3/uL (130-400); Red Blood Cell Count 4.57 10^6/uL (4.70-6.10); Red Cell Dist. Width 12.8 % (11.5-14.5); White Blood Cell Count 7.9 10^3/uL (4.8-10.8)
[2023-09-02 02:32] LABS: APTT 99.6 Sec (23.4-35.0)
[2023-09-02 02:52] LABS: ALT (SGPT) 23 U/L (0-50); AST (SGOT) 33 U/L (17-59); Albumin 3.6 g/dl (3.5-5.0); Alkaline Phosphatase 54 U/L (38-126); Blood Urea Nitrogen 19 mg/dl (9-20); Calcium 9.5 mg/dl (8.4-10.2); Carbon Dioxide 21 mmol/L (22-30); Chloride 107 mmol/L (98-107); Estimated Creatinine Clearance 96 ml/min; Glucose 98 mg/dl (70-99); Magnesium 2.2 mg/dl (1.6-2.3); Sodium 138 mmol/L (135-145); Total Protein 6.1 g/dl (6.3-8.2); eGFR > 60.00
[2023-09-02] MEDS: LOW STRENGTH ASPIRIN 81 MG PO (07:58)
[2023-09-02] MEDS: LOPRESSOR 50 MG PO ×2 (07:58→20:30)
--- NOTE | 2023-09-02 08:17 | PTCARENOTE ---
Addendum entered by Vanessa Chaparro RN 09/02/23 08:46:
patient converted to NSR at 0251 last night.
Original Note:
report given to laboratory mechanic helper. am medications given.
--- NOTE | 2023-09-02 08:18 | W.PN.CD ---
Today's Communication / Plan
-
Echocardiogram.
Cardiac catheterization today.
Consider anticoagulation post catheterization.
Impression / Plan
-
Impression/Plan: 72-year-old male with hypertension, dyslipidemia, and microscopic hematuria admitted with NSTEMI, subsequently developing new atrial fibrillation.
#NSTEMI
-Currently chest pain free. No longer on nitro gtt.
-Troponin peaked at 5.040.
-Echocardiogram pending.
-Cardiac catheterization this morning for clarification of coronary anatomy.
-Continue metoprolol, aspirin, atorvastatin.
-If he gets PCI, we will use clopidogrel in anticipation of requiring therapeutic anticoagulation.
#Paroxysmal AF
-New diagnosis.
-Currently in AF with controlled ventricular response.
-Rate control with metoprolol.
-CHADS2-Vasc = 3 (HTN, Age, presumably vascular disease).
-Anticipate therapeutic anticoagulation with DOAC post procedure.
-Echocardiogram pending.
#HTN
-Chronic, stable.
-Continue metoprolol.
-Restart ramipril when indicated.
#HLD
-Chronic.
-Previously on simvastatin 10mg. Transitioned to atorvastatin 40mg daily.
-Goal LDL < 55.
#Microscopic hematuria
-Chronic, stable.
-Normal Hbg.
-Renal US shows bilateral renal cysts, no malignancy (08/24/2020)
-Follows with Dr. Simms.
-Tolerating heparin/ASA.
Subjective/Interval History:
Chest pain free.
Hemodynamically stable overnight.
Data:
Physical Exam
Vital Signs/Labs
Vital Signs
Temp Pulse Resp BP Pulse Ox
36.4 C 77 18 108/71 93
09/02/23 07:56 09/02/23 07:58 09/02/23 07:56 09/02/23 07:58 09/02/23 07:56
08/31/23 09/01/23 09/02/23
11:59 11:59 11:59
Actual Weight 112 kg 109.2 kg
09/02/23 02:14
09/02/23 02:14
APTT 99.6 Sec (23.4-35.0) H 09/02/23 02:14
Magnesium 2.2 mg/dl (1.6-2.3) 09/02/23 02:14
LAB Results
08/31/23 08/31/23 08/31/23
07:47 10:09 14:58
Troponin I 5.130 H* 4.840 H* Cancelled
08/31/23 08/31/23 08/31/23
14:59 17:57 20:57
Troponin I 4.500 H* Cancelled Cancelled
08/31/23 09/01/23
22:26 05:06
Troponin I 5.040 H* 4.240 H*
Physical Exam
Constitutional: No acute distress and Comfortable
EENT: Anicteric and Moist mucous membranes
Cardiovascular: Pedal edema is absent, JVD pressure is normal, Rhythm/rate is irregular, S1S2 is normal and Murmur/rub/gallop absent
Respiratory: Respiratory effort normal, Lungs clear to auscul., Wheeze Absent, Crackles Absent and Rhonchi Absent
GI: Soft, Distention absent, Flat, Non tender and Normal bowel sounds
Neuro/Psych: AO x 3
Data Reviewed
-
Date of Service: September 02, 2023
Medical Decision Making: Reviewed Test Results, Test Interpretation and Review of Case with other Provider
EKG: Tracing Personally Visualized and interpreted and Report Reviewed by me
X-Ray/CT/US/MRI/NUC/PET: Image Personally Visualized and interpreted and Report Reviewed by me
Labs: Labs Reviewed by me
[2023-09-02 09:11] LABS: ACT-LR - POC 390 Seconds (116-155)
--- NOTE | 2023-09-02 09:57 | ITS.CL.ANGIO ---
[facility] - Angioplasty
Angioplasty
Procedure Report:
CARDIAC CATHETERIZATION REPORT
Date of Procedure: 09/02/2023
Referring: Slade Zuñiga M.D.
INDICATION: Non-ST elevation myocardial infarction.
PROCEDURE:
1. Left catheterization.
2. Coronary angiography.
3. Intravascular ultrasound of the right coronary artery.
4. Successful shockwave intracoronary lithotripsy of the proximal/ostial right coronary artery.
5. Successful PCI of the proximal/ostial right coronary artery.
ACCESS:
6 Norwegian right radial artery.
CATHETERS:
1. 5 Norwegian JR4.
2. 5 Norwegian JL 3.5.
3. 6 Norwegian AL 0.75 guiding catheter.
HEMODYNAMIC DATA
Weight (kg): 108.9
AO (s/d/x, mmHg): 95/67/81
LV (s/x mmHg): 97/12
LEFT VENTRICULOGRAPHY: Not performed.
CORONARY ANGIOGRAPHY
Dominance: Right.
Left Main: Large size, bifurcating vessel. There is no coronary artery disease.
LAD: Normal size vessel giving rise to two diagonals. The proximal vessel is somewhat aneurysmal and ectatic. There are minor luminal irregularities in the remainder of the vessel. The first diagonal is a relatively small vessel (1.5 mm).
There is a 70% lesion in the origin/proximal segment of the vessel. The second diagonal is a much more significant vessel and bifurcates into an upper and lower branch. The more medial of the branch has a 70% lesion in its proximal margin.
Ramus: Congenitally absent.
Circumflex: Normal size, nondominant vessel giving rise to 2 small obtuse marginals before terminating as a left posterolateral branch. There are luminal irregularities throughout.
RCA: Large size, dominant vessel with an anterior takeoff. There is a hazy, 80% culprit lesion in the ostial/proximal RCA. There are minor luminal irregularities throughout the remainder of the vessel.
INTERVENTION(S)
1. Successful angioplasty of the hazy, 80% culprit ostial/proximal RCA lesion (2.0 x 12 semicompliant balloon).
2. Successful intravascular ultrasound, demonstrating a densely calcified lesion.
3. Successful intracoronary lithotripsy (3.5 x 12 shockwave balloon).
4. Successful IVUS guided PCI of the culprit lesion (Xience Skypoint 3.5 x 38 JAIMEE, postdilated with a 3.5 NC balloon throughout and a 4.0 NC balloon in the proximal margin) with reduction in stenosis to 0%, maintaining DONA-3 flow.
Narrative:
The decision was made to perform intracoronary imaging. The diagnostic catheter was removed over a wire and exchanged for 6 Norwegian AL 0.75 guiding catheter. The guiding catheter was advanced into the ascending aorta and seated in the right coronary
artery. Additional heparin was given to obtain an ACT greater than 250 seconds. Due to concern about the ability to deliver an IVUS catheter, the decision was made to predilate the lesion prior to IVUS delivery. Initially, a workhorse wire would
not cross the densely calcified lesion. A whisper wire was advanced into the distal RCA with a quick cross microcatheter. After advancing after crossing the lesion with a coronary wire, the lesion was predilated with a 2.0 x 12 semicompliant
balloon. Afterward, an IVUS catheter was advanced through the guiding catheter and into the ostium of the artery. Ring down was performed once the imaging crystal was no longer inside of the guiding catheter. The IVUS catheter was advanced into the
proximal RCA, beyond the lesion in question. Intravascular ultrasound was performed in a retrograde fashion using a slow pullback. Intracoronary imaging demonstrated a densely calcified proximal/ostial RCA lesion.
Given the degree of calcification, the decision was made to proceed with lithotripsy prior to PCI. In order to facilitate delivery, the lesion was predilated again with a 3.0 NC balloon. The NC balloon was removed and A Shockwave 3.5 x 12 coronary
lithotripsy balloon was advanced over the wire and into the proximal/ostial RCA lesion. The balloon was sterilely connected to the controller and prepped to negative pressure. Meticulous care was taken while positioning the shockwave balloon.
Once in satisfactory position, the balloon was inflated to 4 korey. After confirming good contact with the vessel wall, 10 pulses were delivered. After delivering 10 pulses, the balloon was inflated to 6 korey then deflated. The entire lesion was
treated in a similar manner for total of 8 rounds.
The decision was made to proceed with percutaneous coronary intervention. The shockwave balloon was removed and a Xience Skypoint 3.5 x 38 drug-eluting stent was advanced. Unfortunately, the stent would not advance. The stent was withdrawn and a 6
Norwegian guide liner was advanced into the right coronary artery over the 3.0 NC balloon. The noncompliant balloon was removed and the stent was readvanced through the GuideLiner, this time passing easily into the right coronary. Meticulous care was
taken while positioning the stent. The distal aspect was covering the entire atherosclerotic lesion. The proximal margin of the stent was brought to the origin of the right coronary artery. The stent was deployed at 12 atmospheres. The stent
balloon was removed. A 3.5 x 12 noncompliant balloon was advanced into the stent and the stent was postdilated to 14 atmospheres in the distal margin, 16 korey in the mid and proximal margins. The noncompliant balloon was removed and IVUS was
repeated. This showed good stent expansion and apposition throughout with possible mild mall apposition/undersizing in the true proximal margin. The IVUS catheter was withdrawn and a 4.0 x 12 NC compliant balloon was advanced. The proximal margin
of the stent was dilated to 14 korey. The noncompliant balloon was removed. Angiography was performed in orthogonal views, confirming good stent expansion and an excellent angiographic result. The coronary wire was withdrawn and the guide was
disengaged from the artery. The catheter was removed over a standard J-wire.
Closure Device: Vascular band.
Radiation (mGy): 1407.03
DAP (cm2.Gy): 85.7576
Fluoroscopy time (minutes): 18.0
Sedation time (minutes): 81
CONCLUSIONS
1. Right dominant circulation with an aneurysmal/ectatic proximal LAD, 70% lesion in the origin/proximal margin of the small first diagonal, a 70% lesion in the lower/more medial branch of the large second diagonal and a hazy, densely calcified,
80% culprit lesion in the ostium/proximal margin of the right coronary artery, s/p IVUS guided intracoronary lithotripsy (3.5 x 12 Shockwave balloon) and PCI (Xience Skypoing 3.5 x 38 JAIMEE, post dilated with a 3.5 x 12 NC balloon throughout and a 4.0
x 12 NC balloon in the ostium/proximal margin) with reduction in stenosis to 0%, maintaining DONA III flow.
2. Normal filling pressures (LVEDP = 12 mmHg at 108.9 kg).
3. Paroxysmal atrial fibrillation during this admission.
RECOMMENDATIONS:
1. Expectant management after cardiac catheterization via right radial approach.
2. Limited weight bearing on the right wrist for one week.
3. Antithrombotic therapy with aspirin and clopidogrel. We will likely add a DOAC to this regimen. After 1 week, discontinue aspirin.
4. Medical management of residual coronary artery disease.
5. High-dose, high potency statin.
6. Echocardiogram ordered and pending.
7. Referral to cardiac rehab.
Copy to: Slade Zuñiga M.D., Jose A Rodriguez D.O.
Hugo Khan DO, FACC, FACP
--- NOTE | 2023-09-02 11:49 | CM ---
Chart reviewed. Patient is independent of ADLS, lives with his in a 2 [address], 2 [facility]IM[facility], 0 DME. Plan is for the patient to return home. CM to follow
[2023-09-02 13:19] LABS: ACT-LR - POC > 397 Seconds (116-155)
[2023-09-02 13:19] LABS: ACT-LR - POC > 397 Seconds (116-155)
[2023-09-02] MEDS: TYLENOL 650 MG PO (14:10)
--- NOTE | 2023-09-02 14:11 | PTCARENOTE ---
patient c/o right shoulder pain, Tylenol po given as ordered.
--- NOTE | 2023-09-02 16:19 | W.PN.HOSP.TC ---
Today's Communication/Plan
-
start Eliquis tomorrow
Assessment / Plan
Assessment / Plan
72-year-old male with past medical history of hypertension, hyperlipidemia, microscopic hematuria now presents for left ear pain radiating down and eventual chest pain.� Admitted for NSTEMI.
PLAN:
#NSTEMI
� Aspirin, statin, Plavix
� As per Cardio, to start Eliquis tomorrow and plan is to stop ASA after 1 week
�Echo: Normal left ventricular size with mild concentri remodeling and normal systolic
�function. No regional wall motion abnormalities are seen. LV ejection fraction
�is 55-60% by Bobby's method of discs.� Normal diastolic function.
�Normal right ventricular size. Normal right ventricular systolic function.
�Normal atria.
�No significant valve abnormalities.
�IVC was not well visualized.
�No evidence of pulmonary hypertension.
� Nitro drip, weaned off
� Cardiology consulted
� underwent left heart cath today
� On 07/25 LDL was 97/HDL 43, hemoglobin A1c 6.0%
#Atrial fibrillation, new and paroxysmal
� Increase metoprolol to 50 mg twice daily
#Hypertension
� Weaned off nitro drip
� Hold ramipril 2.5 mg for now
#Hyperlipidemia
� Transition simvastatin to atorvastatin 40 mg daily upon discharge
#Microscopic hematuria
� Follow Dr. Palomo outpatient
#DVT prophylaxis
� Heparin drip
reviewed with Dr. Khan and then with pt and at bedside
Anticipated Discharge: 24 - 48 hours
Subjective/Interval History
-
Date of Service: September 02, 2023
Feels better and is in good spirits
Objective Data
-
Labs:
Laboratory Results
09/02/23
09:20
APTT Cancelled
Vital Signs:
Vital Signs
Temp Pulse Resp BP Pulse Ox
98.0 F 62 20 102/71 93
09/02/23 12:00 09/02/23 14:00 09/02/23 12:00 09/02/23 14:00 09/02/23 14:00
I&O
09/01/23 09/02/23 09/03/23
06:59 06:59 06:59
Intake Total 336 / 336
Balance 336 / 336
Review of Systems
-
History Source: Patient and Family ( at bedside)
Constitutional: Denies No Symptoms
EENT: Denies No Symptoms Reported
Respiratory: Denies No Symptoms
Cardiac: Denies No Symptoms or Chest Pain
Abdomen/GI: Denies No Symptoms
Genitourinary: Denies No Symptoms
Physical Exam
-
General: Well Developed, Well Nourished and No Apparent Distress
HEENT: Normocephalic, Atraumatic and Moist Mucous Membranes
Respiratory: Clear to Auscultation; Negative Wheezes, Rales or Rhonchi
Cardiac: Regular Rhythm and S1/S2
GI: Soft, Nontender and Nondistended
Musculoskeletal: No Clubbing, No Cyanosis and No Edema
Neuro: Awake, Alert and Oriented
[2023-09-02] MEDS: LIPITOR 40 MG PO (17:39)
[2023-09-02 20:22] LABS: Hepatitis C Antibody Negative (Negative)
--- NOTE | 2023-09-03 00:50 | PTCARENOTE ---
Pt rec'd at shift change awake,alert with no c/o pain. right radial site with DDI. No active bleeding or hematoma,good pulse. Sinus on telemetry.
[2023-09-03 03:27] VITALS: BP 109/71
[2023-09-03 04:25] LABS: Hematocrit 40.4 % (39.0-52.0); Hemoglobin 13.7 g/dL (13.0-18.0); Mean Corp Hgb Conc. 33.9 g/dL (33.0-37.0); Mean Corpuscular Hgb 31.2 pg (27.0-31.0); Mean Platelet Volume 10.9 fL (7.4-10.4); Platelet Count 153 10^3/uL (130-400); Red Blood Cell Count 4.39 10^6/uL (4.70-6.10); Red Cell Dist. Width 12.5 % (11.5-14.5); White Blood Cell Count 6.6 10^3/uL (4.8-10.8)
[2023-09-03 04:51] LABS: Blood Urea Nitrogen 17 mg/dl (9-20); Carbon Dioxide 25 mmol/L (22-30); Chloride 107 mmol/L (98-107); Estimated Creatinine Clearance 96 ml/min; Glucose 120 mg/dl (70-99); HDL Cholesterol 42 mg/dl; LDL Cholesterol, Calculated 79 mg/dl; Potassium 3.9 mmol/L (3.5-5.1); Sodium 136 mmol/L (135-145); Total Cholesterol 134 mg/dl (50-199); Triglyceride 67 mg/dl (10-149); Very Low Density Lipoprotein 13 mg/dl (0-30); eGFR > 60.00
[2023-09-03 07:49] VITALS: BP 108/77
[2023-09-03] MEDS: ELIQUIS 5 MG PO (08:18)
[2023-09-03] MEDS: LOPRESSOR 50 MG PO (08:18)
[2023-09-03] MEDS: PLAVIX 75 MG PO (08:19)
[2023-09-03] MEDS: LOW STRENGTH ASPIRIN 81 MG PO (08:19)
--- NOTE | 2023-09-03 09:32 | W.PN.CD ---
Today's Communication / Plan
-
Plan for triple therapy ( ELiquis , ASA and plavix) for 1 week and then stop ASA. Plan to continue Eliquis and Plavix
stable for dischange from cardiology standpoint
Impression / Plan
-
Impression/Plan: 72-year-old male with hypertension, dyslipidemia, and microscopic hematuria admitted with NSTEMI, subsequently developing new atrial fibrillation.
#NSTEMI
-Currently chest pain free. No longer on nitro gtt.
-Troponin peaked at 5.040.
-Echo EF 55-60%
-Cardiac catheterization - successful stenting of RCA 80% stenosis, D1 70% and D2 wtih 70% stenosis of the more medial branch
-Continue metoprolol, aspirin, atorvastatin.
-If he gets PCI, we will use clopidogrel in anticipation of requiring therapeutic anticoagulation.
-Plan for triple therapy ( ELiquis , ASA and plavix) for 1 week and then stop ASA. Plan to continue Eliquis and Plavix
#Paroxysmal AF
-New diagnosis.
-Currently in NSR
-Rate control with metoprolol.
-CHADS2-Vasc = 3 (HTN, Age, presumably vascular disease).
-Anticipate therapeutic anticoagulation with DOAC post procedure.
-Echocardiogram pending.
#HTN
-Chronic, stable.
-Continue metoprolol.
-Restart ramipril when indicated.
#HLD
-Chronic.
-Previously on simvastatin 10mg. Transitioned to atorvastatin 40mg daily.
-Goal LDL < 55.
#Microscopic hematuria
-Chronic, stable.
-Normal Hbg.
-Renal US shows bilateral renal cysts, no malignancy (08/24/2020)
-Follows with Dr. Simms.
Subjective/Interval History:
Chest pain free.
Hemodynamically stable overnight.
Data:
Physical Exam
Vital Signs/Labs
Vital Signs
Temp Pulse Resp BP Pulse Ox
98.7 F 67 16 108/77 95
09/03/23 07:48 09/03/23 08:00 09/03/23 07:48 09/03/23 07:49 09/03/23 07:48
09/02/23 09/03/23 09/04/23
06:59 06:59 06:59
Actual Weight 109.2 kg 109.5 kg
09/03/23 03:41
09/03/23 03:41
APTT Cancelled 09/02/23 09:20
Magnesium 2.2 mg/dl (1.6-2.3) 09/02/23 02:14
Triglycerides 67 mg/dl (10-149) 09/03/23 03:41
LDL Cholesterol, Calc 79 mg/dl 09/03/23 03:41
VLDL Cholesterol, Calc 13 mg/dl (0-30) 09/03/23 03:41
HDL Cholesterol 42 mg/dl 09/03/23 03:41
LAB Results
08/31/23 08/31/23 08/31/23
10:09 14:58 14:59
Troponin I 4.840 H* Cancelled 4.500 H*
08/31/23 08/31/23 08/31/23
17:57 20:57 22:26
Troponin I Cancelled Cancelled 5.040 H*
09/01/23
05:06
Troponin I 4.240 H*
Physical Exam
EENT: Anicteric
Cardiovascular: Rhythm & rate is regular
Respiratory: Respiratory effort normal
GI: Soft
Neuro/Psych: Alert
Other: Other (cath site fine)
Data Reviewed
-
Date of Service: September 03, 2023
Medical Decision Making: Reviewed Test Results
X-Ray/CT/US/MRI/NUC/PET: Report Reviewed by me
Medical Tests (PFT, Pathology etc): Report Reviewed by me
Labs: Labs Reviewed by me
[2023-09-03 11:11] VITALS: BP 117/80
--- NOTE | 2023-09-03 11:46 | CM ---
Pricing on Eliquis 5 mg BID is $40 for a 30 day supply and $80 for a 90 day mail order. Patient is agreeable to the cost. Free 30 day coupon placed in the red discharge folder
--- NOTE | 2023-09-03 11:55 | W.PN.HOSP.TC ---
Today's Communication/Plan
-
dc now
Assessment / Plan
Assessment / Plan
72-year-old male with past medical history of hypertension, hyperlipidemia, microscopic hematuria now presents for left ear pain radiating down and eventual chest pain.� Admitted for NSTEMI.
PLAN:
#NSTEMI
� Aspirin, statin, Plavix
� As per Cardio, started Eliquis and plan is to stop ASA after 1 week
�Echo: Normal left ventricular size with mild concentri remodeling and normal systolic
�function. No regional wall motion abnormalities are seen. LV ejection fraction
�is 55-60% by Bobby's method of discs.� Normal diastolic function.
�Normal right ventricular size. Normal right ventricular systolic function.
�Normal atria.
�No significant valve abnormalities.
�IVC was not well visualized.
�No evidence of pulmonary hypertension.
� Nitro drip, weaned off
� Cardiology consulted
� underwent left heart cath 09/01
� On 07/25 LDL was 97/HDL 43, hemoglobin A1c 6.0%
#Atrial fibrillation, new and paroxysmal
� Increased metoprolol to 50 mg twice daily
#Hypertension
� Weaned off nitro drip
� Hold ramipril 2.5 mg for now
#Hyperlipidemia
� Transition simvastatin to atorvastatin 40 mg daily upon discharge
#Microscopic hematuria
� Follow Dr. Palomo outpatient
#DVT prophylaxis
� Heparin drip
reviewed with Dr. Khan yesterday and then with pt at bedside
More than 30 minutes spent in discharge including
Final examination of the patient
Summarizing hospital stay
Instructions for continuing care to all relevant caregivers
Preparation of discharge records, prescriptions, and referral forms
Total time spent (in minutes):45
Anticipated Discharge: Today
Subjective/Interval History
-
Date of Service: September 03, 2023
Feels well, cleared by cardio for dc and is anxiously awaiting dc
Objective Data
-
Labs:
Laboratory Results
09/03/23
03:41
WBC 6.6
Hgb 13.7
Hct 40.4
Plt Count 153
Sodium 136
Potassium 3.9
Chloride 107
Carbon Dioxide 25
BUN 17
Creatinine 0.9
Glucose 120 H
Calcium 9.0
Vital Signs:
Vital Signs
Temp Pulse Resp BP Pulse Ox
98.2 F 57 16 108/77 98
09/03/23 11:11 09/03/23 11:11 09/03/23 11:11 09/03/23 07:49 09/03/23 11:11
I&O
09/02/23 09/03/23 09/04/23
06:59 06:59 06:59
Intake Total 336 / 336 250 / 250 480 / 480
Balance 336 / 336 250 / 250 480 / 480
Review of Systems
-
History Source: Patient and Coordinated Provider
Constitutional: Denies No Symptoms
EENT: Denies No Symptoms Reported
Respiratory: Denies No Symptoms
Cardiac: Denies No Symptoms or Chest Pain
Abdomen/GI: Denies No Symptoms
Genitourinary: Denies No Symptoms
Neuro: Reports No Symptoms
Physical Exam
-
General: Well Developed, Well Nourished and No Apparent Distress
HEENT: Normocephalic, Atraumatic and Moist Mucous Membranes
Respiratory: Clear to Auscultation; Negative Wheezes, Rales or Rhonchi
Cardiac: Regular Rhythm and S1/S2
GI: Soft, Nontender and Nondistended
Musculoskeletal: No Clubbing, No Cyanosis and No Edema
Neuro: Awake, Alert and Oriented
--- NOTE | 2023-09-03 12:15 | W.DS.TRANS ---
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
-
Discharge Instructions:
Discharge Diagnosis/Procedures Shockwave lithotripsy/angioplasty and stent to
RCA (09/02/23)
Diet Low Cholesterol
Activity No strenuous activity
Additional Activity See attached instructions
Driving Restrictions No driving for 24 hours
Bathing Restrictions None
Blood Work CBC, CMP, Lipid Profile 3-4 weeks
Other Services Cardiac Rehab
Instructions:
Stand-Alone Forms: DC Instructions- Cath/EP Lab
Changes to Home Medications: Yes
Discharge Medications:
DC Medications w/original date entered in [facility]
psyllium 1 packet PO DAILYPRN PRN constipation 08/31/23
apixaban 5 mg tablet (Eliquis) 5 mg PO BID #60 tabs 09/03/23
aspirin 81 mg chewable tablet (Children's Aspirin) 81 mg PO DAILY #7 tabs 09/03/23
atorvastatin 40 mg tablet 40 mg PO QPM #90 tabs 09/03/23
clopidogrel 75 mg tablet 75 mg PO DAILY #90 tabs 09/03/23
metoprolol tartrate 50 mg tablet 50 mg PO BID #60 tabs 09/03/23
Home Medication Changes
Eliquis is new
Stop Simvastatin
Start Aspirin for 1 week, Lipitor daily, Plavix daily and Metoprolol bid
Pending Results: No
== END 2023-09-03 13:26 | disposition home or self-care (01) | DRG 324 ==
LOC: IVU 11:51
PROVIDERS: Internal Medicine Cardiovascular Disease; Nurse Practitioner; Nurse Practitioner Gerontology; Physician Assistant; ADMITTING PHYSICIAN Internal Medicine; ATTENDING PHYSICIAN Internal Medicine; CONSULT PHYSICIAN Internal Medicine Cardiovascular Disease; EMERGENCY PHYSICIAN Emergency Medicine; FAMILY PHYSICIAN Internal Medicine
PROC: B2111ZZ Fluoroscopy of Multiple Coronary Arteries using Low Osmolar Contrast (ICD-10-PCS; 2023-09-02)
PROC: 027034Z Dilation of Coronary Artery, One Artery with Drug-eluting Intraluminal Device, Percutaneous Approach (ICD-10-PCS; 2023-09-02)
PROC: 02F03ZZ Fragmentation in Coronary Artery, One Artery, Percutaneous Approach (ICD-10-PCS; 2023-09-02)
PROC: 4A023N7 Measurement of Cardiac Sampling and Pressure, Left Heart, Percutaneous Approach (ICD-10-PCS; 2023-09-02)
PROC: B240ZZ3 Ultrasonography of Single Coronary Artery, Intravascular (ICD-10-PCS; 2023-09-02)
DX: I21.4 Non-ST elevation (NSTEMI) myocardial infarction (principal); I10 Essential (primary) hypertension; E78.00 Pure hypercholesterolemia, unspecified; R31.29 Other microscopic hematuria; H92.02 Otalgia, left ear; I48.0 Paroxysmal atrial fibrillation; Z82.49 Family history of ischemic heart disease and other diseases of the circulatory system; Z80.0 Family history of malignant neoplasm of digestive organs; Z88.1 Allergy status to other antibiotic agents; Z79.82 Long term (current) use of aspirin
CPT/HCPCS: 80048; 80053; 80061; 83036; 83690; 83735; 84484; 85025; 85027; 85347; 85730; 86803; 87502; 87811; 92972; 92978; 93005; 93306; 93458; 96365; 96366; 96367; 99291; C1725; C1753; C1761; C1769; C1874; C1887; C1894; C9600; Q9967

== ENCOUNTER 2023-09-27 11:11 | Outpatient (RCR) | payer MEDICARE, SELFPAY | END 2023-09-27 23:59 | disposition home or self-care (01) | LOC: CRHB 11:11 | PROVIDERS: ATTENDING PHYSICIAN Internal Medicine Cardiovascular Disease | DX: I21.4 Non-ST elevation (NSTEMI) myocardial infarction (principal); Z95.5 Presence of coronary angioplasty implant and graft | CPT/HCPCS: G0422; G0423 ==

== ENCOUNTER → 2023-10-03 08:45 | Outpatient (REF) | payer MEDICARE, SELFPAY ==
[2023-10-03 10:42] LABS: ALT (SGPT) 44 U/L (0-50); AST (SGOT) 44 U/L (17-59); Albumin 4.3 g/dl (3.5-5.0); Alkaline Phosphatase 76 U/L (38-126); Blood Urea Nitrogen 13 mg/dl (9-20); Calcium 9.8 mg/dl (8.4-10.2); Carbon Dioxide 26 mmol/L (22-30); Chloride 107 mmol/L (98-107); Glucose 93 mg/dl (70-99); HDL Cholesterol 44 mg/dl; LDL Cholesterol, Calculated 54 mg/dl; Potassium 4.2 mmol/L (3.5-5.1); Sodium 138 mmol/L (135-145); Total Bilirubin 1.1 mg/dl (0.2-1.3); Total Cholesterol 114 mg/dl (50-199); Total Protein 6.9 g/dl (6.3-8.2); Triglyceride 81 mg/dl (10-149); Very Low Density Lipoprotein 16 mg/dl (0-30); eGFR > 60.00
[2023-10-03 10:45] LABS: % Basophils 0.4 % (0-2); % Eosinophils 4.6 % (0-6); % Immature Granulocytes 0.2 % (0-0.5); % Lymphocytes 35.6 % (20.5-51.1); % Monocytes 9.1 % (1.7-9.3); % Neutrophils 50.1 % (42.2-75.2); Absolute Eosinophils 0.2 10^3/uL (0-0.7); Absolute Lymphocytes 1.6 10^3/uL (1.2-3.4); Absolute Monocytes 0.4 10^3/uL (0.1-0.6); Absolute Neutrophils 2.3 10^3/uL (1.4-6.5); Hematocrit 44.1 % (39.0-52.0); Hemoglobin 14.5 g/dL (13.0-18.0); Mean Corp Hgb Conc. 32.9 g/dL (33.0-37.0); Mean Corpuscular Hgb 31.3 pg (27.0-31.0); Mean Corpuscular Volume 95.2 fL (80.0-94.0); Mean Platelet Volume 10.9 fL (7.4-10.4); Nucleated Red Blood Cells % 0 % (-); Platelet Count 166 10^3/uL (130-400); Red Blood Cell Count 4.63 10^6/uL (4.70-6.10); Red Cell Dist. Width 12.8 % (11.5-14.5); White Blood Cell Count 4.5 10^3/uL (4.8-10.8)
== END ==
LOC: HWLAB 08:45
PROVIDERS: ATTENDING PHYSICIAN Nurse Practitioner Adult Health; FAMILY PHYSICIAN Internal Medicine; REFERRING PHYSICIAN Nurse Practitioner
DX: I25.2 Old myocardial infarction (principal); I48.0 Paroxysmal atrial fibrillation; I10 Essential (primary) hypertension; E78.5 Hyperlipidemia, unspecified
CPT/HCPCS: 36415; 80053; 80061; 85025

== ENCOUNTER 2023-10-28 12:19 | Outpatient (RCR) | payer MEDICARE, SELFPAY | END 2023-10-28 23:59 | disposition home or self-care (01) | LOC: CRHB 12:19 | PROVIDERS: ATTENDING PHYSICIAN Internal Medicine Cardiovascular Disease | DX: I25.10 Atherosclerotic heart disease of native coronary artery without angina pectoris (principal); Z95.5 Presence of coronary angioplasty implant and graft; I25.2 Old myocardial infarction | CPT/HCPCS: G0422; G0423 ==

== ENCOUNTER 2023-11-29 11:38 | Outpatient (RCR) | payer MEDICARE, SELFPAY | END 2023-11-29 23:59 | disposition home or self-care (01) | LOC: CRHB 11:38 | PROVIDERS: ATTENDING PHYSICIAN Internal Medicine Cardiovascular Disease | DX: I25.10 Atherosclerotic heart disease of native coronary artery without angina pectoris (principal); I21.4 Non-ST elevation (NSTEMI) myocardial infarction; Z95.5 Presence of coronary angioplasty implant and graft | CPT/HCPCS: G0422; G0423 ==

== ENCOUNTER 2023-12-11 10:56 | Outpatient (RCR) | payer MEDICARE, SELFPAY | END 2023-12-11 23:59 | disposition home or self-care (01) | LOC: CRHB 10:56 | PROVIDERS: ATTENDING PHYSICIAN Internal Medicine Cardiovascular Disease | DX: I25.10 Atherosclerotic heart disease of native coronary artery without angina pectoris (principal); Z95.5 Presence of coronary angioplasty implant and graft; I25.2 Old myocardial infarction | CPT/HCPCS: G0422; G0423 ==

== ENCOUNTER 2024-05-14 15:06 | Emergency (ER) | payer MEDICARE, SELFPAY ==
[2024-05-14 15:08] VITALS: BP 140/80
--- NOTE | 2024-05-14 16:21 | ED.GENMED ---
History of Present Illness
General
Chief Complaint: Nose Bleed
Time Seen by Provider: 05/14/24 15:39
History of Present Illness
History of Present Illness:
73-year-old male with history of A-fib on Eliquis and coronary artery disease on Plavix presents to the emergency department for evaluation of epistaxis occurring intermittently throughout the day. Predominantly from the right nare. Bleeding
currently controlled on initial assessment
Past History
Past History
ED Past Medical History: HTN and Hypercholesterolemia
Social History
Tobacco: Non-smoker
Alcohol: None
Drug: None
Personal: Single
Review of Systems
Review of Systems
Allergies reviewed?: Yes
All Other Systems: ROS reviewed and negative except as documented in HPI and ROS
Phy Exam
Physical Exam
Physical Exam:
GEN: Well appearing, NAD, WDWN
HEENT: Oral mucosa moist, no scleral icterus. Large clot in the right nare
Cardiac: Regular rate
Lung: No respiratory distress, no tachypnea
MSK: No gross deformity or injuries
Skin: Good color, no pallor or jaundice, no rashes
Neuro: AO x3, moves all extremities freely
Psych: Calm, cooperative
Course
Vital Signs
Initial and Last Documented VS:
Initial Vital Signs
Temp Pulse Resp BP Pulse Ox
98.9 F 60 18 140/80 96
05/14/24 15:08 05/14/24 15:08 05/14/24 15:08 05/14/24 15:08 05/14/24 15:08
Last Documented Vital Signs
Temp Pulse Resp BP Pulse Ox
98.9 F 55 18 127/81 96
05/14/24 15:08 05/14/24 16:42 05/14/24 16:42 05/14/24 16:42 05/14/24 16:42
Procedures
Nosebleed
Drug treatment: Lidocaine and Epinephrine
Treatment: local pressure applied and Silver nitrate cautery
Post treatment bleeding: none- good control
MDM/Problems Addressed
MDM/Problems Addressed:
After irrigation and epinephrine soaked gauze packing, the site of bleeding was identified to the right anterior nare, this was cauterized after lidocaine application with good results. The patient was observed for 45 minutes postprocedure with no
residual bleeding. Recommend outpatient ENT follow-up
*Critical Care Note
Total Time (30-74mins, 75-104mins- exclusive of procedures): Not Applicable
ED Attending Note
-
Portions of this chart may have been created with voice recognition software.� Occasional wrong word or��sound alike� substitutions may have occurred due to the inherent limitations of voice recognition software.
Discharge Plan
Departure
Patient Disposition: Home (Routine Discharge)
Date of Disposition: 05/14/24
Time of Disposition: 17:16
Patient with high blood pressure during this ER visit?: No
Discharge Problem:
Acute anterior epistaxis
Instructions: Nosebleeds (DC)
Prescriptions:
No Action
psyllium Packet
1 packet PO DAILYPRN PRN (Reason: constipation)
atorvastatin 40 mg Tablet
40 mg PO QPM Qty: 90 0RF
clopidogrel 75 mg Tablet
75 mg PO DAILY Qty: 90 3RF
aspirin [Children's Aspirin] 81 mg Tablet,Chewable
81 mg PO DAILY Qty: 7 0RF
Rx Instructions:
FOR ONE WEEK THEN DISCONTINUE
Eliquis 5 mg Tablet
5 mg PO BID Qty: 60 11RF
metoprolol tartrate 50 mg Tablet
50 mg PO BID Qty: 60 2RF
Referrals:
Jose A Clark MD [Family Provider] -
Peg Vicente MD [Active] -
Interventions
Interventions:
*Risk Screen - Suicide Last Done: 05/14/24 15:08
*General Assessment Last Done: 05/14/24 15:08
*Neglect/Abuse Screening Last Done: 05/14/24 15:08
ED- Fall Risk Assessment Last Done: 05/14/24 17:54
*ED COVID-19 Vaccine History Last Done: 05/14/24 15:08
*Nursing Disposition Last Done: 05/14/24 17:54
ED-EENT Assessment Last Done: 05/14/24 16:42
Discharge Date and Time
Discharge Date/Time: 05/14/24 17:54
Print Language: ARABIC
[2024-05-14 16:42] VITALS: BP 127/81
== END 2024-05-14 17:54 | disposition home or self-care (01) ==
LOC: EMR 15:06
PROVIDERS: EMERGENCY PHYSICIAN Student in an Organized Health Care Education/Training Program; FAMILY PHYSICIAN Specialist
DX: R04.0 Epistaxis (principal); I48.91 Unspecified atrial fibrillation; I25.10 Atherosclerotic heart disease of native coronary artery without angina pectoris; I10 Essential (primary) hypertension; E78.00 Pure hypercholesterolemia, unspecified; Z79.01 Long term (current) use of anticoagulants; Z79.02 Long term (current) use of antithrombotics/antiplatelets
CPT/HCPCS: 99282; 30901

== ENCOUNTER 2024-05-15 16:43 | Emergency (ER) | payer MEDICARE, SELFPAY ==
[2024-05-15 16:50] VITALS: BP 119/72
--- NOTE | 2024-05-15 18:22 | ED.GENMED ---
History of Present Illness
General
Chief Complaint: Nose Bleed
Time Seen by Provider: 05/15/24 18:07
History of Present Illness
History of Present Illness:
73-year-old male returns to the emergency department due to recurrent epistaxis. I treated this patient yesterday with silver nitrate cautery with good control however he states that began oozing again this evening. He is on Eliquis and Plavix.
Past History
Past History
ED Past Medical History: HTN and Hypercholesterolemia
Social History
Tobacco: Non-smoker
Alcohol: None
Drug: None
Personal: Single
Review of Systems
Review of Systems
Allergies reviewed?: Yes
All Other Systems: ROS reviewed and negative except as documented in HPI and ROS
Phy Exam
Physical Exam
Physical Exam:
GEN: Well appearing, NAD, WDWN
HEENT: Oral mucosa moist, no scleral icterus. Mild active bleeding from the right nare
Cardiac: Regular rate
Lung: No respiratory distress, no tachypnea
MSK: No gross deformity or injuries
Skin: Good color, no pallor or jaundice, no rashes
Neuro: AO x3, moves all extremities freely
Psych: Calm, cooperative
Course
Orders/Labs/Results
Orders:
Orders
05/15/24 18:08
Tranexamic Acid 1,000 mg INH NOW STA
05/15/24 18:14
Tranexamic Acid 1,000 mg .ROUTE .STK-MED ONE
Vital Signs
Initial and Last Documented VS:
Initial Vital Signs
Temp Pulse Resp BP Pulse Ox
97.9 F 58 18 119/72 97
05/15/24 16:50 05/15/24 16:50 05/15/24 16:50 05/15/24 16:50 05/15/24 16:50
Last Documented Vital Signs
Temp Pulse Resp BP Pulse Ox
97.9 F 58 18 119/72 97
05/15/24 16:50 05/15/24 16:50 05/15/24 16:50 05/15/24 16:50 05/15/24 16:50
Procedures
Nosebleed
Drug treatment: Tranexamic Acid
Treatment: Merocel packing
Post treatment bleeding: none- good control
MDM/Problems Addressed
MDM/Problems Addressed:
Anterior Merisel packing placed and infused with tranexamic acid. No further bleeding noted at time of discharge. Contacted ENT for outpatient follow-up on Saturday, patient is advised to stop taking Eliquis but he will continue Plavix
*Critical Care Note
Total Time (30-74mins, 75-104mins- exclusive of procedures): Not Applicable
ED Attending Note
-
Portions of this chart may have been created with voice recognition software.� Occasional wrong word or��sound alike� substitutions may have occurred due to the inherent limitations of voice recognition software.
Discharge Plan
Departure
Patient Disposition: Home (Routine Discharge)
Date of Disposition: 05/15/24
Time of Disposition: 18:22
Patient with high blood pressure during this ER visit?: No
Discharge Problem:
Epistaxis, recurrent
Instructions: Nosebleeds (DC)
Prescriptions:
No Action
psyllium Packet
1 packet PO DAILYPRN PRN (Reason: constipation)
atorvastatin 40 mg Tablet
40 mg PO QPM Qty: 90 0RF
clopidogrel 75 mg Tablet
75 mg PO DAILY Qty: 90 3RF
aspirin [Children's Aspirin] 81 mg Tablet,Chewable
81 mg PO DAILY Qty: 7 0RF
Rx Instructions:
FOR ONE WEEK THEN DISCONTINUE
Eliquis 5 mg Tablet
5 mg PO BID Qty: 60 11RF
metoprolol tartrate 50 mg Tablet
50 mg PO BID Qty: 60 2RF
Referrals:
Jose A Rodriguez I., DO [Family Provider] -
Michael Schroeder MD [Active] - 05/18/24
Interventions
Interventions:
*Risk Screen - Suicide Last Done: 05/15/24 16:50
*General Assessment Last Done: 05/15/24 16:50
*Neglect/Abuse Screening Last Done: 05/15/24 16:50
*ED COVID-19 Vaccine History Last Done: 05/15/24 16:50
*Nursing Disposition Last Done: 05/15/24 18:38
ED-EENT Assessment Last Done: 05/15/24 18:38
Discharge Date and Time
Discharge Date/Time: 05/15/24 18:42
Print Language: YI
[2024-05-15] MEDS: TRANEXAMIC ACID 1000 MG INH (18:37)
== END 2024-05-15 18:42 | disposition home or self-care (01) ==
LOC: EMR 16:43
PROVIDERS: EMERGENCY PHYSICIAN Emergency Medicine; FAMILY PHYSICIAN Internal Medicine
DX: R04.0 Epistaxis (principal); E78.00 Pure hypercholesterolemia, unspecified; I10 Essential (primary) hypertension; Z79.01 Long term (current) use of anticoagulants; Z79.02 Long term (current) use of antithrombotics/antiplatelets
CPT/HCPCS: 99282; 30901

== ENCOUNTER 2024-05-26 03:29 | Emergency (ER) | payer MEDICARE, SELFPAY ==
[2024-05-26 03:30] VITALS: BP 140/82
[2024-05-26 03:56] VITALS: BMI 25.5
--- NOTE | 2024-05-26 04:40 | ED.GENMED ---
History of Present Illness
<NEW Voss - Last Filed: 05/26/24 05:15>
General
Chief Complaint: Nose Bleed
Source: patient
Time Seen by Provider: 05/26/24 04:40
Nursing documentation reviewed up to this point in time: agreed with
History of Present Illness
History of Present Illness:
Pt is a 73 yo M who presents to the emergency room with a right nose bleed that began around 3 am. Pt was seen in the ER for right sided nose bleed on 05/14 and 05/15. Today patient states that he saw ENT yesterday and they performed cauterization.
Pt states that he last took Eliquis on Saturday due to the ENT recommendation. Pt states that he has an associated mild headache and sore throat with the nose bleed. He stated that this has been constant with the nose bleed. Pt reports that the
nosebleeds are easier to control when he is not on Eliquis. Pt is currently still taking Plavix. Pt denies dizziness, chest pain, N/V, shortness of breath.
Past History
<NEW Voss - Last Filed: 05/26/24 05:15>
Past History
ED Past Medical History: HTN and Hypercholesterolemia
Social History
Tobacco: Non-smoker
Alcohol: None
Drug: None
Personal: Single
Review of Systems
<NEW Voss - Last Filed: 05/26/24 05:15>
Review of Systems
Allergies reviewed?: Yes
Constitutional: Reports no symptoms
EENT: Reports sore throat and other (right nosebleed)
Respiratory: Reports no symptoms
Cardiac: Reports no symptoms
ABD/GI: Reports no symptoms
Skin: Reports no symptoms
Neurological: Reports headache
Phy Exam
<NEW Voss - Last Filed: 05/26/24 05:15>
General Physical Exam
General Presentation: no apparent distress
General age: appears stated age
General Skin: warm
General Habitus: normal
General Mental: alert
General Hydration: appears well hydrated
ENT Exam
Additional ENT: Right nares actively bleeding
Cardiovascular Exam
Cardiovascular Exam: regular rate/rhythm
Pulmonary Exam
Pulmonary Exam: lungs clear
Course
<NEW Voss - Last Filed: 05/26/24 05:15>
Orders/Labs/Results
Orders:
Orders
05/26/24 05:08
Tranexamic Acid 1,000 mg .ROUTE .STK-MED ONE
Vital Signs
Initial and Last Documented VS:
Initial Vital Signs
Temp Pulse Resp BP Pulse Ox
97.8 F 66 20 140/82 98
05/26/24 03:30 05/26/24 03:30 05/26/24 03:30 05/26/24 03:30 05/26/24 03:30
Last Documented Vital Signs
Temp Pulse Resp BP Pulse Ox
97.8 F 60 20 108/88 96
05/26/24 03:30 05/26/24 06:40 05/26/24 06:40 05/26/24 06:40 05/26/24 06:40
<Vanessa Vargas DO - Last Filed: 05/26/24 06:57>
Orders/Labs/Results
Orders:
Orders
05/26/24 05:08
Tranexamic Acid 1,000 mg .ROUTE .STK-MED ONE
Vital Signs
Initial and Last Documented VS:
Initial Vital Signs
Temp Pulse Resp BP Pulse Ox
97.8 F 66 20 140/82 98
05/26/24 03:30 05/26/24 03:30 05/26/24 03:30 05/26/24 03:30 05/26/24 03:30
Last Documented Vital Signs
Temp Pulse Resp BP Pulse Ox
97.8 F 60 20 108/88 96
05/26/24 03:30 05/26/24 06:40 05/26/24 06:40 05/26/24 06:40 05/26/24 06:40
<NEW Voss - Last Filed: 05/26/24 05:15>
*Critical Care Note
Total Time (30-74mins, 75-104mins- exclusive of procedures): Not Applicable
<Vanessa Vargas DO - Last Filed: 05/26/24 06:57>
*Pulse Oximetry
Patient hypoxic: no
ED Attending Note
<NEW Voss - Last Filed: 05/26/24 05:15>
-
Portions of this chart may have been created with voice recognition software.� Occasional wrong word or��sound alike� substitutions may have occurred due to the inherent limitations of voice recognition software.
<Vanessa Vargas DO - Last Filed: 05/26/24 06:57>
ED Attending Note
Patient seen and examined by attending physician: Yes
I performed the substantive portion of visit, reviewed & personally made and approve the management plan that is documented in note by myself or MARYAM.: Yes
ED Attending Note:
This is a 73-year-old gentleman with history of PAF, maintained on Eliquis, history of CAD, non-STEMI August of this year undergoing PTCA with stent maintained on Plavix. He has been suffering with intermittent right nostril epistaxis over the past
12 days. Initially evaluated in this ED May 14 where he underwent silver nitrate cauterization to his anterior septum on the right side. He returned the evening of May 15 with recurrent bleeding and a TXA soaked Merocel sponge was
inserted, discharged to home and then followed up with ENT, Dr. Montoya on May 18. At that time Merocel packing was removed and repeat cauterization completed. He was doing well until May 21 when bleeding recurred and
he was evaluated by Dr. Montoya again, on May 22, repeat cauterization and instructed to discontinue Eliquis.
A follow-up visit with ENT yesterday, May 24 with repeat cauterization performed. He remains off of Eliquis.
Patient presents with recurrent bleeding from his right nostril. Bleeding controlled with local pressure.
He denies dizziness nor lightheadedness, no abdominal pain or nausea.
GENERAL: 73-year-old gentleman appears his stated age, awake and alert, pleasant, appears in no acute distress. Nasal clip in place. No active bleeding.
EYE: anicteric
NECK: Supple, nontender, no meningismus, no significant adenopathy.
ENT: posterior pharynx has scant blood posterior pharynx but no evidence of active streaming. Oral mucosa is moist. TM clear b/l. A few organized clots removed from right nostril. There is active bleeding from mid to posterior aspect of the
anterior septum.
CARDIAC: Regular rate and rhythm. no murmur.
LUNGS: Clear breath sounds bilaterally, no acute respiratory distress, no wheezes/rales/rhonchi
ABDOMEN: Soft, nondistended, without focal tenderness
NEUROLOGICAL: Alert and oriented x3, no focal neuro deficits. Gait is stuart and steady.
SKIN: Warm and dry, normal color, skin intact. No rash.
MUSCULOSKELETAL: No C/C/E. peripheral pulses are full and equal b/l. No palpable tenderness.
PSYCH: Normal and appropriate interaction.
Patient presents with recurrent epistaxis right nostril which appears posterior aspect of the anterior septum. Multiple recent cauterization procedures.
Will anesthetized and decongested with topical lidocaine and topical epinephrine and plan for Merocel packing with TXA.
He remains hemodynamically stable.
Due to recurrent bleeding would recommend he continue to hold Eliquis.
Due to PTCA with stent August of this year, must continue Plavix.
05/26/2024 0654 AM
Merocel packing remains dry and in place. No recurrent bleeding.
Will discharge to home with Merocel in place with recommendations for prompt follow-up with ENT for recheck.
Continue to hold Eliquis.
Discharge Plan
Departure
Patient Disposition: Home (Routine Discharge)
Date of Disposition: 05/26/24
Time of Disposition: 06:57
Patient with high blood pressure during this ER visit?: No
Condition: Good
Discharge Problem:
Recurrent epistaxis
Instructions: Nosebleeds (DC)
Prescriptions:
No Action
atorvastatin 40 mg Tablet
40 mg PO QPM Qty: 90 0RF
clopidogrel 75 mg Tablet
75 mg PO DAILY Qty: 90 3RF
Eliquis 5 mg Tablet
5 mg PO BID Qty: 60 11RF
Rx Instructions:
stopped secondary to nose bleed
metoprolol tartrate 50 mg Tablet
50 mg PO BID Qty: 60 2RF
Referrals:
Jose A Rodriguez I., [Family Provider] -
Cole Montoya MD [Active] - Next open appointment
Interventions
Interventions:
*Risk Screen - Suicide Last Done: 05/26/24 03:30
*General Assessment Last Done: 05/26/24 04:01
*Neglect/Abuse Screening Last Done: 05/26/24 03:30
ED- Fall Risk Assessment Last Done: 05/26/24 04:01
*ED COVID-19 Vaccine History Last Done: 05/26/24 04:01
ED-EENT Assessment Last Done: 05/26/24 04:01
Discharge Date and Time
Print Language: MOROCCAN
[2024-05-26 06:40] VITALS: BP 108/88
== END 2024-05-26 07:22 | disposition home or self-care (01) ==
LOC: EMR 03:29
PROVIDERS: EMERGENCY PHYSICIAN Emergency Medicine; FAMILY PHYSICIAN Internal Medicine
DX: R04.0 Epistaxis (principal); I10 Essential (primary) hypertension; E78.00 Pure hypercholesterolemia, unspecified; I48.0 Paroxysmal atrial fibrillation; I25.10 Atherosclerotic heart disease of native coronary artery without angina pectoris; Z95.5 Presence of coronary angioplasty implant and graft; Z79.02 Long term (current) use of antithrombotics/antiplatelets
CPT/HCPCS: 30905; 99282

== ENCOUNTER → 2024-09-30 09:48 | Outpatient (REF) | payer OTHER, SELFPAY ==
[2024-09-30 13:15] LABS: % Basophils 0.4 % (0-2); % Eosinophils 3.7 % (0-6); % Immature Granulocytes 0.4 % (0-0.5); % Monocytes 8.2 % (1.7-9.3); % Neutrophils 48.3 % (42.2-75.2); Absolute Eosinophils 0.2 10^3/uL (0-0.7); Absolute Lymphocytes 1.9 10^3/uL (1.2-3.4); Absolute Monocytes 0.4 10^3/uL (0.1-0.6); Absolute Neutrophils 2.4 10^3/uL (1.4-6.5); Hematocrit 43.5 % (39.0-52.0); Hemoglobin 14.5 g/dL (13.0-18.0); Mean Corp Hgb Conc. 33.3 g/dL (33.0-37.0); Mean Corpuscular Hgb 30.9 pg (27.0-31.0); Mean Corpuscular Volume 92.8 fL (80.0-94.0); Mean Platelet Volume 10.9 fL (7.4-10.4); Nucleated Red Blood Cells % 0 % (-); Platelet Count 161 10^3/uL (130-400); Red Blood Cell Count 4.69 10^6/uL (4.70-6.10); Red Cell Dist. Width 12.4 % (11.5-14.5); White Blood Cell Count 4.9 10^3/uL (4.8-10.8)
[2024-09-30 13:20] LABS: ALT (SGPT) 41 U/L (0-50); AST (SGOT) 39 U/L (17-59); Alkaline Phosphatase 84 U/L (38-126); Blood Urea Nitrogen 22 mg/dl (9-20); Calcium 9.6 mg/dl (8.4-10.2); Carbon Dioxide 25 mmol/L (22-30); Chloride 108 mmol/L (98-107); Glucose 86 mg/dl (70-99); HDL Cholesterol 42 mg/dl; LDL Cholesterol, Calculated 64 mg/dl; Potassium 4.1 mmol/L (3.5-5.1); Sodium 141 mmol/L (135-145); Total Bilirubin 1.4 mg/dl (0.2-1.3); Total Cholesterol 120 mg/dl (50-199); Total Protein 6.6 g/dl (6.3-8.2); Triglyceride 72 mg/dl (10-149); Very Low Density Lipoprotein 14 mg/dl (0-30); eGFR > 60.00
[2024-09-30 15:02] LABS: PSA, Total - Screen 4.48 ng/ml (0.0-4.0); TSH Reflex To Free T4 1.38 uIU/ml (0.47-4.68)
== END ==
LOC: HWLAB 09:48
PROVIDERS: ATTENDING PHYSICIAN Internal Medicine
DX: Z12.5 Encounter for screening for malignant neoplasm of prostate (principal); E78.5 Hyperlipidemia, unspecified; E83.52 Hypercalcemia; I10 Essential (primary) hypertension
CPT/HCPCS: 36415; 80053; 80061; 84443; 85025; G0103